=== PATIENT | female | born 1990 | race Caucasian/White ===

== ENCOUNTER → 2022-03-27 | Outpatient (CLI) | payer BC ==
--- NOTE | 2022-03-27 16:56 | US ---
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 TECHNIQUE: Transabdominal sonographic images of the pelvis were acquired. Transvaginal sonographic images were medically necessary to better assess the following anatomy: endometrium Date of LMP: 03/20/2022 FINDINGS: EXAM MEASUREMENTS: Uterus: 8.4 x 3.8 x 4.9 cm Endometrial Stripe: 0.6 cm Right Ovary: 3.3 x 2.3 x 2.3 cm for a volume of 8.7 mL. Left Ovary: 3.3 x 3.7 x 3.3 cm mildly enlarged with a volume of 21.5 mL. 1. Uterus: Retroverted and otherwise wnl. Cervical nabothian cysts measure up to 1.1 cm. 2. Endometrium: wnl, IUD seen in place 3. Right Ovary: multiple small peripheral follicles 4. Left Ovary: multiple small peripheral follicles 5. Bilateral Adnexa: wnl 6. Posterior cul-de-sac: trace free fluid IMPRESSION: 1. Numerous small peripheral follicles in both ovaries. Findings in keeping with patient's reported P COS. 2. Retroverted uterus with IUD in place. 3. Trace cul-de-sac free fluid likely physiologic.
== END | disposition home or self-care (01) ==
LOC: RADUSWWP 14:22
PROVIDERS: ATTEND Family Medicine
DX: E28.2 Polycystic ovarian syndrome (principal); N85.4 Malposition of uterus
CPT/HCPCS: 76830; 76856

== ENCOUNTER → 2022-04-18 | Outpatient (CLI) | payer BC ==
--- NOTE | 2022-04-18 12:07 | XR ---
EXAMINATION TYPE: XR chest 2V DATE OF EXAM: 04/18/2022 COMPARISON: NONE HISTORY: Chest pain and SOB. TECHNIQUE: Frontal and lateral views of the chest are obtained. FINDINGS: There is no suspicious focal air space opacity, pleural effusion, or pneumothorax seen. T he cardiac silhouette size is upper limits of normal. The osseous structures are intact. IMPRESSION: No acute process.
== END | disposition home or self-care (01) ==
LOC: RADXRYALE 11:45
PROVIDERS: ATTEND Physician Assistant
DX: J02.9 Acute pharyngitis, unspecified (principal); R09.81 Nasal congestion; R07.1 Chest pain on breathing; R06.02 Shortness of breath
CPT/HCPCS: 71046